=== PATIENT | male | born 1995 | race American Indian/Alaskan Native ===

== ENCOUNTER 2020-05-31 21:41 | Emergency (ER) | payer OTHER ==
[2020-05-31 22:03] VITALS: BP 117/69
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
[2020-06-01] MEDS ORDERED: KETOROLAC 30 MG/1 ML INJ IM ONE (01:52)
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
== END 2020-06-01 03:11 | disposition home or self-care (01) ==
LOC: ED 21:41
DX: S39.012A Strain of muscle, fascia and tendon of lower back, initial encounter (principal); S16.1XXA Strain of muscle, fascia and tendon at neck level, initial encounter; J45.909 Unspecified asthma, uncomplicated; Z87.891 Personal history of nicotine dependence; Z79.899 Other long term (current) drug therapy; V49.49XA Driver injured in collision with other motor vehicles in traffic accident, initial encounter; W22.10XA Striking against or struck by unspecified automobile airbag, initial encounter; Y93.89 Activity, other specified; Y92.410 Unspecified street and highway as the place of occurrence of the external cause; Y99.8 Other external cause status
CPT/HCPCS: 72040; 72100; 96372; 99283; J1885